=== PATIENT | male | born 1970 | race Caucasian/White ===

== ENCOUNTER 2016-07-14 16:18 | Emergency (ER) | payer OTHER ==
[~2016-07-14] VITALS: Ht 162.6 cm; Wt 110.0 kg
[2016-07-14 16:28] VITALS: TEMP 37.7; Ht 162.6 cm; Wt 110.0 kg
[2016-07-14] MEDS ORDERED: HYDR12.55 PO (17:38)
[2016-07-14] MEDS ORDERED: ZNTT/150 PO (17:38)
[2016-07-14 18:05] LABS: BASO % 0.1 %; BASO ABS # 0.01 K/uL (0-0.2); COMPLETE YES; EOS % 0.2 %; HEMATOCRIT 38.4 % (42-52); IG% 0.2 %; LYMPH % 13.6 %; LYMPH ABS # 1.35 K/uL (1.2-3.4); MEAN CELL VOLUME 83.7 fL (80-100); MEAN CORPUSCULAR HEMOGLOBIN 27.9 pg (25-34); MEAN CORPUSCULAR HGB CONC 33.3 g/dl (32-36); MEAN PLATELET VOLUME 10.1 fL (7.4-10.4); MONO % 3.5 %; NEUT % 82.4 %; PLATELET COUNT 191 K/uL (130-400); RED BLOOD COUNT 4.59 M/uL (4.7-6.1); WHITE BLOOD COUNT 9.92 K/uL (4.8-10.8)
[2016-07-14 18:24] LABS: ALT/SGPT 29 U/L (12-78); AST/SGOT 22 U/L (15-37); BLOOD UREA NITROGEN 15 mg/dl (7-18); BUN/CREATININE RATIO 13.6 (10-20); CALCIUM 8.2 mg/dl (8.5-10.1); CARBON DIOXIDE 27 mmol/L (21-32); CHLORIDE 105 mmol/L (98-107); GLUCOSE 104 mg/dl (70-99); MAGNESIUM 2.1 mg/dl (1.8-2.4); POTASSIUM 4.2 mmol/L (3.5-5.1); SODIUM 139 mmol/L (136-145)
--- NOTE | 2016-07-14 18:26 | DIAGNOSTIC IMAGING REPORT ---
CHEST 2 VIEWS ROUTINE CLINICAL HISTORY: Chest pain. Left arm pain. COMPARISON STUDY: No previous studies for comparison. FINDINGS: Lung volumes are normal. There is no pneumothorax or pleural effusion. Pulmonary vascularity is normal. Cardiac size is normal. Mediastinal contours are normal. There is no evidence of pulmonary edema. IMPRESSION: No acute cardiopulmonary findings. Electronically signed by: Tao Worthington M.D. 07/14/2016 6:25 PM Dictated Date/Time: 07/14/2016 6:25 PM
[2016-07-14 18:35] LABS: ALKALINE PHOSPHATASE 49 U/L (45-117); THYROID STIMULATING HORMONE 0.582 uIu/ml (0.300-4.500)
[2016-07-14] MEDS ORDERED: ALUMINUM/MAGNESIUM SUSP 30 ML UDC PO STA (19:15)
--- NOTE | 2016-07-14 21:43 | EMERGENCY ROOM VISIT NOTE ---
History Report prepared by Su: Rosi Ocampo Under the Supervision of: Dr. Hyun Aguilar D.O. First contact with patient: 17:09 Chief Complaint: CHEST PAIN Stated Complaint: CHEST PAIN,L ARM PAIN, DIZZY Nursing Triage Summary: pt c/o chest pain started this am. radiates to bilat arms dizzy, wheezing and dry mouth. decsribed as squeezing, heaviness and tightness History of Present Illness The patient is a 45 year old male who presents to the Emergency Room with complaints of resolved left-sided chest pain that started 5 hours ago, around 1230. He states that the pain was sharp when it was there. The pain radiated into both of his arms and he also experienced shortness of breath. The patient denies any chest pain currently. He states that after developing the chest pain he became dizzy and experienced palpitations. He states that he could hear his heart beating in his ears. The patient experienced near syncope, but he is which he described as pain making him drop to the ground and then getting up on one knee. The patient adds that when he began to experience the pain, he started to panic. He denies any arm pain or shortness of breath now. The patient is still experiencing some dizziness, but states that it is improved from earlier. He is also experiencing nausea. The patient denies lower extremity edema. The patient states that he experienced a similar pain in the right side of his chest 2-3 weeks ago.The patient adds that he knows he is overweight and recently started working out so he has been sore from that and is unsure of if that is contributing to his pain. The patient denies any personal history of heart problems, but states that he has a family history of diabetes, hypertension, and hyperlipidemia. Source of History: patient Onset: 5 hours ago, around 1230 Position: chest (left) Quality: other (left-sided chest pain) Timing: resolved Associated Symptoms: + SOB, + nausea Note: dizziness, bilateral arm pain, palpitations, no lower extremity edema Review of Systems See HPI for pertinent positives & negatives. A total of 10 systems reviewed and were otherwise negative. Past Medical & Surgical Medical Problems: (1) No pertinent past medical history Family History Diabetes mellitus Hyperlipidemia Hypertension Social History Smoking Status: Former Smoker Housing Status: other (half-way) Current/Historical Medications Scheduled Hydrochlorothiazide (Hydrochlorothiazide), 12.5 TAB PO DAILY Ranitidine (Zantac), 150 MG PO BID Allergies Coded Allergies: No Known Allergies (Unverified , 07/14/16) Physical Exam Vital Signs Date Time Temp Pulse Resp B/P Pulse Ox O2 Delivery O2 Flow Rate FiO2 07/14/16 22:00 73 18 93/55 96 07/14/16 21:25 75 07/14/16 21:00 87 18 109/61 95 Room Air 07/14/16 19:11 84 16 106/53 96 Room Air 07/14/16 17:55 86 18 119/60 96 Room Air 07/14/16 17:25 90 07/14/16 16:28 37.7 85 20 129/60 97 Room Air Physical Exam GENERAL: alert, well appearing, well nourished, no distress, non-toxic EYE EXAM: normal conjunctiva, PERRL and EOM's grossly intact OROPHARYNX: no exudate, no erythema, lips, buccal mucosa, and tongue normal and mucous membranes are moist NECK: supple, no nuchal rigidity, no adenopathy, non-tender LUNGS: Clear to auscultation. Normal chest wall mechanics HEART: no murmurs, S1 normal and S2 normal ABDOMEN: abdomen soft, non-tender, normo-active bowel sounds, no masses, no rebound or guarding. BACK: Back is symmetrical on inspection and there is no deformity, no midline tenderness, no CVA tenderness. SKIN: no rashes and no bruising UPPER EXTREMITIES: upper extremities are grossly normal. LOWER EXTREMITIES: No pitting edema. NEURO EXAM: Normal sensorium, cranial nerves II-XII grossly intact, normal speech, no gross weakness of arms, no gross weakness of legs. Medical Decision & Procedures ER Provider Diagnostic Interpretation: Radiology results have been interpreted by the radiologist and reviewed by me. CHEST 2 VIEWS ROUTINE FINDINGS: Lung volumes are normal. There is no pneumothorax or pleural effusion. Pulmonary vascularity is normal. Cardiac size is normal. Mediastinal contours are normal. There is no evidence of pulmonary edema. IMPRESSION: No acute cardiopulmonary findings. Electronically signed by: Tao Worthington M.D. 07/14/2016 6:25 PM Dictated Date/Time: 07/14/2016 6:25 PM Laboratory Results 07/14/16 17:55 Red Blood Count 4.59, Mean Corpuscular Volume 83.7, Mean Corpuscular Hemoglobin 27.9, Mean Corpuscular Hemoglobin Concent 33.3, Mean Platelet Volume 10.1, Neutrophils (%) (Auto) 82.4, Lymphocytes (%) (Auto) 13.6, Monocytes (%) (Auto) 3.5, Eosinophils (%) (Auto) 0.2, Basophils (%) (Auto) 0.1, Neutrophils # (Auto) 8.17, Lymphocytes # (Auto) 1.35, Monocytes # (Auto) 0.35, Eosinophils # (Auto) 0.02, Basophils # (Auto) 0.01 07/14/16 17:55 Test 07/14/16 17:55 07/14/16 21:08 White Blood Count 9.92 K/uL (4.8-10.8) Red Blood Count 4.59 M/uL (4.7-6.1) Hemoglobin 12.8 g/dL (14.0-18.0) Hematocrit 38.4 % (42-52) Mean Corpuscular Volume 83.7 fL (80-100) Mean Corpuscular Hemoglobin 27.9 pg (25-34) Mean Corpuscular Hemoglobin Concent 33.3 g/dl (32-36) Platelet Count 191 K/uL (130-400) Mean Platelet Volume 10.1 fL (7.4-10.4) Neutrophils (%) (Auto) 82.4 % Lymphocytes (%) (Auto) 13.6 % Monocytes (%) (Auto) 3.5 % Eosinophils (%) (Auto) 0.2 % Basophils (%) (Auto) 0.1 % Neutrophils # (Auto) 8.17 K/uL (1.4-6.5) Lymphocytes # (Auto) 1.35 K/uL (1.2-3.4) Monocytes # (Auto) 0.35 K/uL (0.11-0.59) Eosinophils # (Auto) 0.02 K/uL (0-0.5) Basophils # (Auto) 0.01 K/uL (0-0.2) RDW Standard Deviation 39.1 fL (36.4-46.3) RDW Coefficient of Variation 13.0 % (11.5-14.5) Immature Granulocyte % (Auto) 0.2 % Immature Granulocyte # (Auto) 0.02 K/uL (0.00-0.02) D-Dimer < 190 ug/L FEU (0-500) Anion Gap 7.0 mmol/L (3-11) Est Creatinine Clear Calc Drug Dose 97.4 ml/min Estimated GFR () 94.8 Estimated GFR (Non- 81.8 BUN/Creatinine Ratio 13.6 (10-20) Calcium Level 8.2 mg/dl (8.5-10.1) Magnesium Level 2.1 mg/dl (1.8-2.4) Total Bilirubin 0.4 mg/dl (0.2-1) Aspartate Amino Transf (AST/SGOT) 22 U/L (15-37) Alanine Aminotransferase (ALT/SGPT) 29 U/L (12-78) Alkaline Phosphatase 49 U/L (45-117) Total Protein 7.1 gm/dl (6.4-8.2) Albumin 3.6 gm/dl (3.4-5.0) Globulin 3.5 gm/dl (2.5-4.0) Albumin/Globulin Ratio 1.0 (0.9-2) Thyroid Stimulating Hormone (TSH) 0.582 uIu/ml (0.300-4.500) Troponin I < 0.015 ng/ml (0-0.045) Laboratory results per my review. Medications Administered Medications (Trade) Dose Ordered Sig/Sara Route Start Time Stop Time Status Last Admin Dose Admin Al Hydroxide/Mg Hydroxide (Maalox Susp) 15 ml NOW STAT PO 07/14/16 19:15 07/14/16 19:16 DC 07/14/16 19:55 15 ML ECG Indication: chest pain Rate (beats per minute): 84 Rhythm: sinus rhythm Findings: no acute ischemic change, other (normal axis, normal intervals) ED Course 1728: The patient was evaluated in room B5. A complete history and physical exam was performed. 1914: Ordered Maalox Susp 15 ml PO 2043: I reassessed the patient. He is feeling better. He has a headache, but thinks that it is due to not eating or drinking anything since lunch. Medical Decision Differential diagnoses includes but is not limited to acute coronary syndrome, myocardial infarction, pericarditis, pulmonary embolus, aortic dissection, pneumonia, pneumothorax, musculoskeletal, shingles, esophageal. HEART score - 1 Patient well-appearing with no complete complaints of recurrent chest pain while here, no complaints of recurrent dizziness. Patient asking to eat, complained of slight headache which she states he gets when he does not eat. Labs reassuring, and 2 troponins negative with second one greater than 8 hours from onset of symptoms. Patient not hypertensive, equal pulses in bilateral upper and lower extremities, no pain radiating into his back, doubt dissection, aneurysm. No recent symptoms and negative chest x-ray feel infiltrate or effusion less likely. Doubt temporal not pericardial effusion, pericarditis. Patient's vital signs stable throughout in the ER. Patient tolerated by mouth without complaints, was ambulatory without incident. Doubt ACS, PE, hypertensive emergency/urgency. Discussed with patient risk factors for ACS and advised additional evaluation and possible additional cardiac testing to be needed. Patient's mild headache he stated is typical for him, was not the worst headache of his life, patient had a nonfocal and normal neuro exam at bedside, doubt CVA, meningitis, central venous sinus thrombus, intracranial hemorrhage, dissection. Discussed symptoms to watch and return for, he verbalized understanding was agreeable with plan. Patient seen and evaluated in the presence of half-way staff and conversations at bedside in presence of half-way staff also. Impression Primary Impression: CHEST PAIN, UNSPECIFIED Scribe Attestation The scribe's documentation has been prepared under my direction and personally reviewed by me in its entirety. I confirm that the note above accurately reflects all work, treatment, procedures, and medical decision making performed by me. Departure Information Dispostion Other Referrals No Doctor, Assigned (PCP) Patient Instructions [facility] Additional Instructions Please follow-up with your doctor to be rechecked discuss your recent symptoms. If you have any recurrent episodes of chest pain, develop trouble breathing, dizziness, vomiting, fevers, or have any other new concerns, please return the emergency room.
[2016-07-14 22:00] VITALS: BP 93/55; PULSE 73; O2SAT 96
[2016-07-14] MEDS ORDERED: ACETAMINOPHEN 500 MG TAB PO STA (22:07)
== END 2016-07-14 22:33 ==
LOC: C.EDB 16:21
DX: R07.9 Chest pain, unspecified (principal); Z83.3 Family history of diabetes mellitus; Z82.49 Family history of ischemic heart disease and other diseases of the circulatory system; Z87.891 Personal history of nicotine dependence